=== PATIENT | male | born 1990 | race African-American/Black ===

== ENCOUNTER 2023-09-21 13:48 | Emergency (ER) | payer SELFPAY ==
[~2023-09-21] VITALS: Ht 170.2 cm; Wt 93.0 kg
[2023-09-21 14:07] VITALS: BP 138/78; PULSE 111; RESP 18; TEMP 98.1; O2SAT 98
[2023-09-21] MEDS ORDERED: BO1 TP (15:09)
== END 2023-09-21 15:40 | disposition home or self-care (01) ==
LOC: ER 14:57
DX: S80.862A Insect bite (nonvenomous), left lower leg, initial encounter (principal); W57.XXXA Bitten or stung by nonvenomous insect and other nonvenomous arthropods, initial encounter; Y93.89 Activity, other specified; Y92.89 Other specified places as the place of occurrence of the external cause; Y99.8 Other external cause status
CPT/HCPCS: 99282